=== PATIENT | male | born 1995 | race Caucasian/White ===

== ENCOUNTER 2019-05-21 22:47 | Emergency (ER) | payer BC ==
[~2019-05-21] VITALS: Ht 177.8 cm; Wt 78.9 kg
[2019-05-21 23:03] VITALS: BP 131/83
--- NOTE | 2019-05-21 23:05 | NUR ---
PT TO LOBBY VSS.
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
--- NOTE | 2019-05-22 00:39 | NUR ---
PT AMBULATED TO BED 2
--- NOTE | 2019-05-22 00:58 | NUR ---
PT WOUND IRRIGATED WITH NORMAL SALINE
--- NOTE | 2019-05-22 03:01 | NUR ---
EMT AT BEDSIDE.
[2019-05-22 03:16] VITALS: BP 131/83
--- NOTE | 2019-05-22 03:16 | NUR ---
Patient discharged with v/s stable. Written and verbal after care instructions given and explained. Patient alert, oriented and verbalized understanding of instructions. Ambulatory with to car. All questions addressed prior to discharge. ID band removed. Patient advised to follow up with PMD. Rx of MOTRIN 800MG given. Patient educated on indication of medication including possible reaction and side effects. Opportunity to ask questions provided and answered.
== END 2019-05-22 03:16 | disposition home or self-care (01) ==
LOC: MED 22:47
DX: S61.012A Laceration without foreign body of left thumb without damage to nail, initial encounter (principal); J45.909 Unspecified asthma, uncomplicated; F15.90 Other stimulant use, unspecified, uncomplicated; W27.8XXA Contact with other nonpowered hand tool, initial encounter; Y93.89 Activity, other specified; Y92.89 Other specified places as the place of occurrence of the external cause; Y99.8 Other external cause status
CPT/HCPCS: 12001; 99283